=== PATIENT | male | born 1960 | race Caucasian/White ===

== ENCOUNTER 2020-11-28 14:14 | Outpatient (CLI) | payer OTHER, SELFPAY ==
--- NOTE | ~2020-11-28 | XR_ITS ---
XR hand RT 2V 11/28/2020 14:37 Indication: Right hand pain Procedure: 2 views right hand Comparison: No prior studies for comparison. Findings: Fracture, subluxation or dislocation. No erosive changes. No focal soft tissue abnormality. There is a punctate radiodensity overlying the tuft of the fourth distal phalanx, consistent with fo reign body. There are mild degenerative changes of the first, second and third MCP joints. Impression: 1: No significant bone or joint abnormality Reviewed, dictated and finalized at location B. WORKER Impression: 1: No significant bone or joint abnormality
== END 2020-11-28 14:15 | disposition home or self-care (01) ==
LOC: ANHIMG 14:23
PROVIDERS: PCP Physician Assistant; Visit Provider Physician Assistant
DX: M79.89 Other specified soft tissue disorders (principal)
CPT/HCPCS: 73120

== ENCOUNTER 2023-03-02 01:27 | Day surgery (SDC) | payer OTHER, SELFPAY ==
[2023-02-17 13:25] VITALS: BMI 31.6
--- NOTE | 2023-03-01 20:45 | PM.HPGS ---
History of Present Illness History of Present Illness Consent: Risks, benefits, and alternatives have been discussed and questions answered. Patient agrees to proceed with procedure. Chief complaint: neoplasm screening Narrative: Logan Bright is a 62 year old male due for colon cancer screening. Maternal GM had colon cancer,mom has had polyps Review of Systems Review of Systems: All systems reviewed & are unremarkable except as noted in HPI and below PMFSH Family History Family History Father Family history of Alzheimer's disease Family history of lymphoma Social History Social History Smoking status: Never smoker Second hand tobacco smoke exposure: No Alcohol intake: current Lack of Transportation: No Lack of Food: Never True Current Housing: I Have Housing Concerned About Future Housing: No Difficulty Paying Gas/Electric Bills: No Difficulty Paying for Meds: No Currently Unemployed: No Education: High School Diploma/GED Difficulty w/ Childcare or Family Care: No Living arrangements: with family Spiritual care concerns: No Meds Home Medications and Allergies Home Medications Medication Instructions Recorded Confirmed Type levothyroxine 125 mcg tablet 125 mcg PO DAILY #90 tabs 12/30/22 03/02/23 Rx simvastatin 40 mg tablet 40 mg PO DAILY #90 tabs 12/30/22 03/02/23 Rx Allergies Allergy/AdvReac Type Severity Reaction Status Date / Time No Known Allergies Allergy Verified 03/02/23 10:35 Exam Const: General: alert Orientation/consciousness: patient oriented x3 Resp: Auscultation: clear to auscultation bilaterally Cardio: Rhythm: regular rhythm GI: GI Palp: Yes Soft to palpation and No Tenderness to palpation present (GI) Neuro: General: patient oriented x3 Assessment and Plan Assessment and plan (1) Screening for colorectal cancer: Code(s): Z12.11 - Encounter for screening for malignant neoplasm of colon; Z12.12 - Encounter for screening for malignant neoplasm of rectum Status: Acute Assessment and Plan: Colonoscopy with possible biopsy or polypectomy or cautery or injection of substances.
[2023-03-02 10:37] VITALS: BP 117/73; PULSE 81; RESP 20; TEMP 36.1; O2SAT 98
[2023-03-02] MEDS: LACTATED RINGERS 1,000 ML 150 ML IV CONT (10:39)
--- NOTE | 2023-03-02 10:50 | WPDANESEPPF ---
Anes - Initial Pre Proc Eval Procedure: Operation Date: 03/02/23 11:45 Proposed Procedures p Screening Colonoscopy - Jelani Fuller MD Date/Time: 03/02/23 10:50 Surgeon: Jelani Fuller MD Pre Op Diagnosis: neoplasm screening Patient Data Age: 62 Gender: M Height: 1.85 m Weight: 109.7 kg Last Vital Signs Temp 97 F L 03/02/23 10:37 Pulse 81 03/02/23 10:37 Resp 20 03/02/23 10:37 BP 117/73 03/02/23 10:37 Pulse Ox 98 03/02/23 10:37 O2 Del Method Room Air 03/02/23 10:37 Allergies Allergy/AdvReac Type Severity Reaction Status Date / Time No Known Allergies Allergy Verified 03/02/23 10:35 Home Medications Medication Instructions Recorded Confirmed Type levothyroxine 125 mcg tablet 125 mcg PO DAILY #90 tabs 12/30/22 03/02/23 Rx simvastatin 40 mg tablet 40 mg PO DAILY #90 tabs 12/30/22 03/02/23 Rx Patient hx anesthesia problems: none Family hx anesthesia problems: none Results Review: All pre-operative results and documents have been reviewed as part of the pre-operative evaluation. [facility] Family History Family History Father Family history of Alzheimer's disease Family history of lymphoma Social History Social History Smoking status: Never smoker Second hand tobacco smoke exposure: No Alcohol intake: current Lack of Transportation: No Lack of Food: Never True Current Housing: I Have Housing Concerned About Future Housing: No Difficulty Paying Gas/Electric Bills: No Difficulty Paying for Meds: No Currently Unemployed: No Education: High School Diploma/GED Difficulty w/ Childcare or Family Care: No Living arrangements: with family Spiritual care concerns: No Anes - Eval Final PreProcedure Day of Procedure 03/02/23 10:50 Patient weight: obese Heart: regular rate and rhythm Lungs: clear to auscultation Airway: Mallampati scale class II Neurological: alert and oriented Last oral intake: >/= 8 hours ASA classification: II Emergent: no Anesthetic plan: proceed Anesthesia type and monitoring: general GIVS and standard monitoring Results Review: All pre-operative results and documents have been reviewed as part of the pre-operative evaluation. Informed Consent: The patient's anesthetic plan and its attendant risks and benefits were discussed with the patient/family/POA. Questions were solicited and answers provided to the satisfaction of the patient/family/POA.
[2023-03-02 11:34] VITALS: BP 105/63; PULSE 72; RESP 16; O2SAT 98
[2023-03-02 11:44] VITALS: BP 111/72; PULSE 70; RESP 18; O2SAT 99
== END 2023-03-02 12:09 | disposition home or self-care (01) ==
PROVIDERS: PCP Physician Assistant; Visit Provider Internal Medicine Gastroenterology
PROC: 0DJD8ZZ Inspection of Lower Intestinal Tract, Via Natural or Artificial Opening Endoscopic (ICD-10-PCS; CPT 45378; principal; 2023-03-02 11:45)
DX: Z12.11 Encounter for screening for malignant neoplasm of colon (principal); K57.30 Diverticulosis of large intestine without perforation or abscess without bleeding; Z86.010 Personal history of colon polyps; E66.9 Obesity, unspecified; Z68.31 Body mass index [BMI] 31.0-31.9, adult; Z83.71 Family history of colonic polyps
CPT/HCPCS: 45378; J2704; J7120